=== PATIENT | female | born 1945 | race Caucasian/White ===

== ENCOUNTER → 2019-02-04 | Outpatient (CLI) | payer OTHER ==
[~2019-02-04] MED LIST: ALEVE220 MG; ALLEGRA180 MG PO; MIRAPEX; NAPROSYN250 MG PO; NORCO 5-325 TA1 EACH PO; TRAMADOL 50 MG50 MG PO; [UNRECOGNIZED DRUG - REMARK]
== END ==
LOC: CAT 12:21
DX: Z13.6 Encounter for screening for cardiovascular disorders (principal); E78.00 Pure hypercholesterolemia, unspecified; I25.10 Atherosclerotic heart disease of native coronary artery without angina pectoris